=== PATIENT | male | born 1980 | race Asian ===

== ENCOUNTER 2017-10-16 04:03 | Inpatient (IN) | payer BC ==
[2017-10-16 04:17] LABS: AADO2 Arterial 535.9 mmHg (7.0-24.0); Allen Test ACCEPTAB; Arterial Base Excess 4.4 mmol/L (-3.0-3); Arterial Blood Gas Oxygen Sat 97.5 mmHG (95.0-98.0); Arterial COHb 0.3 % (0.0-3.0); Arterial Fraction of Oxyhgb 96.9 % (93.0-99.0); Arterial MetHb 0.3 % (0.0-1.5); Arterial Total Hemglobin 11.3 g/dl (12.0-18.0); Arterial pCO2 63.7 mmhg (35-45); MODE MASK - NRB; Site Left Radial
[2017-10-16] MEDS: ALBUTEROL 0.083% (NEB) 2.5 MG/3 ML AMP INH (04:26)
[2017-10-16] MEDS: IPRATROPIUM (NEB) 0.5 MG/2.5 ML AMP INH (04:26)
[2017-10-16 04:32] LABS: WHITE BLOOD COUNT 34.5 10^3/ul (4.8-10.8)
[2017-10-16 04:32] LABS: ABNORMAL IP MESSAGE 1; HEMATOCRIT 30.9 % (42.0-52.0); HEMOGLOBIN 10.2 g/dl (14.0-18.0); MEAN CORPUSCULAR HEMOGLOBIN 34.7 pg (29.0-33.0); MEAN CORPUSCULAR VOLUME 105.1 fl (82.0-101.0); MEAN PLATELET VOLUME 10.9 fl (7.4-10.4); PLATELET COUNT 255 10^3/UL (140-415); POSITIVE DIFF @See below; RED BLOOD COUNT 2.94 10^6/ul (4.70-6.10); RED CELL DISTRIBUTION WIDTH 13.5 % (11.5-14.5)
[2017-10-16 04:33] LABS: ADD MAN DIFF? YES
[2017-10-16 04:54] LABS: ALANINE AMINOTRANSFERASE 72 IU/L (13-69); ALBUMIN 3.5 g/dl (3.3-4.9); ALBUMIN/GLOBULIN RATIO 0.83; ALKALINE PHOSPHATASE 231 IU/L (42-121); ANION GAP 14 (8-16); ASPARTATE AMINO TRANSFERASE 51 IU/L (15-46); BILIRUBIN,INDIRECT 0.3 mg/dl (0-1.1); BILIRUBIN,TOTAL 0.3 mg/dl (0.2-1.3); BLOOD UREA NITROGEN 24 mg/dl (7-20); CALCIUM 10.2 mg/dl (8.4-10.2); CARBON DIOXIDE 32 mmol/L (21-31); CHLORIDE 95 mmol/L (97-110); CREATININE 0.77 mg/dl (0.61-1.24); GLUCOSE 175 mg/dl (70-220); POTASSIUM 4.6 mmol/L (3.5-5.1); SODIUM 136 mmol/L (135-144); TOTAL PROTEIN 7.7 g/dl (6.1-8.1)
[2017-10-16 04:55] LABS: INR 0.96; PROTIME 12.9 Sec (11.9-14.9)
[2017-10-16 04:55] LABS: LACTIC ACID 2.5 mmol/L (0.5-2.0)
[2017-10-16 04:56] LABS: PARTIAL THROMBOPLASTIN TIME 28.4 Sec (25.0-35.0)
[2017-10-16 05:05] LABS: B-TYPE NATRIURETIC PEPTIDE 147 PG/ML (0-125); TROPONIN-I 0.069 ng/ml (0.000-0.120)
[2017-10-16 05:10] LABS: ANISOCYTOSIS 1+ (0-0); BAND NEUTROPHILS % (M) 3 % (0-4); EOSINOPHILS % (M) 3 % (0-7); LYMPHOCYTES % (M) 6 % (15-51); MONOCYTE #M 3.1 10^3/ul (0.3-0.9); MONOCYTES % (M) 9 % (0-11); PLATELET ESTIMATE NORMAL; POLYCHROMASIA 2+ (0-0); REACTIVE LYMPHOCYTES #M 0.3 10^3/ul (0.0-0.0); REACTIVE LYMPHOCYTES% (M) 1 % (0-0); SEG NEUT #M 27.3 10^3/ul (1.6-7.5); SEGMENTED NEUTROPHILS (M) % 78 % (39-77)
[2017-10-16] MEDS: SODIUM CHLORIDE 0.9% 1L BAG IV* (05:51)
[2017-10-16] MEDS: CEFEPIME 2GM/50 ML (PMX) 50 ML IVPB (05:51)
[2017-10-16] MEDS ORDERED: IPRATROPIUM (HFA) 12.9 GM INHALER INH (06:00)
[2017-10-16] MEDS ORDERED: ALBUTEROL HFA 8 GM INHALER INH (06:00)
[2017-10-16] MEDS: LIDOCAINE 1% (MPF) 5 ML VIAL SC ×2 (06:30→09:44)
[2017-10-16] MEDS ORDERED: VANCOMYCIN IV PER PHARMACY XX (06:30)
[2017-10-16] MEDS: SOD CHLORIDE 0.9% 1,000 ML IV ×3 (06:51→20:13)
[2017-10-16] MEDS: NORepinephrine 8MG/250 ML (PMX 250 ML IV (06:51)
[2017-10-16 06:52] LABS: LACTIC ACID 10.4 mmol/L (0.5-2.0)
[2017-10-16] MEDS: PANTOPRAZOLE 40 MG INJ IV (06:54)
[2017-10-16] MEDS ORDERED: NA BICARBONATE 8.4% 50 ML SYG (07:00)
[2017-10-16] MEDS ORDERED: SUCCINYLCHOLINE CHLORIDE 100 MG/5 ML SYG IV (07:00)
[2017-10-16] MEDS ORDERED: EPINEPHrine 0.1 MG/ML SYG (07:00)
[2017-10-16 07:11] LABS: WHITE BLOOD COUNT 40.7 10^3/ul (4.8-10.8)
[2017-10-16 07:11] LABS: ABNORMAL IP MESSAGE 1; ADD UMIC YES; HEMATOCRIT 17.2 % (42.0-52.0); MEAN CORPUSCULAR HEMOGLOBIN 35.6 pg (29.0-33.0); MEAN CORPUSCULAR HGB CONC 33.1 g/dl (32.0-37.0); MEAN CORPUSCULAR VOLUME 107.5 fl (82.0-101.0); MEAN PLATELET VOLUME 11.2 fl (7.4-10.4); NUCLEATED RED BLOOD CELLS% 0.1 /100WBC (0.0-0.0); PLATELET COUNT 215 10^3/UL (140-415); POSITIVE DIFF @See below; RED CELL DISTRIBUTION WIDTH 13.8 % (11.5-14.5); UR ASCORBIC ACID 40 mg/dL (NEGATIVE); UR BILIRUBIN (Dip) NEGATIVE (NEGATIVE); UR BLOOD (Dip) 1+ mg/dL (NEGATIVE); UR CLARITY CLOUDY (CLEAR); UR COLOR YELLOW (YELLOW); UR GLUCOSE (Dip) 2+ mg/dL (NEGATIVE); UR KETONES (Dip) NEGATIVE (NEGATIVE); UR LEUKOCYTE ESTERASE (Dip) NEGATIVE Leu/ul (NEGATIVE); UR NITRITE (Dip) NEGATIVE (NEGATIVE); UR RBC 4 /HPF (0-5); UR SPECIFIC GRAVITY (Dip) 1.014 (1.003-1.030); UR TOTAL PROTEIN (Dip) 3+ mg/dl (NEGATIVE); UR UROBILINOGEN (Dip) NEGATIVE (NEGATIVE); UR WBC 2 /HPF (0-5)
[2017-10-16 07:18] LABS: ADD MAN DIFF? YES; HEMOGLOBIN 5.7 g/dl (14.0-18.0)
[2017-10-16 07:30] LABS: ALANINE AMINOTRANSFERASE 760 IU/L (13-69); ALBUMIN 2.6 g/dl (3.3-4.9); ALBUMIN/GLOBULIN RATIO 0.81; ALKALINE PHOSPHATASE 171 IU/L (42-121); ANION GAP 15 (8-16); BILIRUBIN,INDIRECT 0.2 mg/dl (0-1.1); BILIRUBIN,TOTAL 0.2 mg/dl (0.2-1.3); BLOOD UREA NITROGEN 26 mg/dl (7-20); CALCIUM 8.5 mg/dl (8.4-10.2); CARBON DIOXIDE 26 mmol/L (21-31); CHLORIDE 102 mmol/L (97-110); CREATINE KINASE 215 IU/L (23-200); CREATININE 0.88 mg/dl (0.61-1.24); GLUCOSE 128 mg/dl (70-220); POTASSIUM 4.2 mmol/L (3.5-5.1); SODIUM 139 mmol/L (135-144); TOTAL PROTEIN 5.8 g/dl (6.1-8.1)
[2017-10-16 07:33] LABS: LACTIC ACID 5.9 mmol/L (0.5-2.0)
[2017-10-16 07:37] LABS: ASPARTATE AMINO TRANSFERASE 1126 IU/L (15-46)
[2017-10-16 07:39] LABS: HEMOGLOBIN A1C 5.9 % (0-5.9)
[2017-10-16 07:44] LABS: AADO2 Arterial 375.8 mmHg (7.0-24.0); Allen Test ACCEPTAB; Arterial Base Excess 1.8 mmol/L (-3.0-3); Arterial Blood Gas Oxygen Sat 99.4 mmHG (95.0-98.0); Arterial COHb 0.3 % (0.0-3.0); Arterial HCO3 24.8 mmol/L (22.0-26.0); Arterial MetHb 0.1 % (0.0-1.5); Arterial Total Hemglobin 9.8 g/dl (12.0-18.0); Arterial pCO2 32.8 mmhg (35-45); MODE VENT - AC; Site Left Radial
[2017-10-16 08:08] LABS: ANISOCYTOSIS 1+ (0-0); BAND NEUTROPHILS #M 2.8 10^3/ul (0.0-0.6); BAND NEUTROPHILS % (M) 7 % (0-4); HYPOCHROMASIA 2+ (0-0); MONOCYTE #M 1.2 10^3/ul (0.3-0.9); MONOCYTES % (M) 3 % (0-11); MYELOCYTES #M 0.4 10^3/ul (0.0-0.0); MYELOCYTES % (M) 1 % (0-0); PLATELET ESTIMATE NORMAL; POLYCHROMASIA 1+ (0-0); SEG NEUT #M 37.4 10^3/ul (1.6-7.5); SEGMENTED NEUTROPHILS (M) % 89 % (39-77)
[2017-10-16] MEDS: VANCOMYCIN 1 GM (PMX) 250 ML IVPB (08:19)
[2017-10-16 09:50] LABS: LACTIC ACID 1.7 mmol/L (0.5-2.0)
[2017-10-16] MEDS: FUROSEMIDE 20 MG INJ IV (12:43)
[2017-10-16] MEDS: PIPER-TAZO 3.375 GM IV (PMX) 100 ML IVPB ×2 (12:43→17:38)
[2017-10-16 13:28] LABS: ADD MAN DIFF? NO
[2017-10-16 13:31] LABS: ABNORMAL IP MESSAGE 1; HEMATOCRIT 30.3 % (42.0-52.0); HEMOGLOBIN 10.3 g/dl (14.0-18.0); MEAN CORPUSCULAR HEMOGLOBIN 32.4 pg (29.0-33.0); MEAN CORPUSCULAR VOLUME 95.3 fl (82.0-101.0); MEAN PLATELET VOLUME 10.3 fl (7.4-10.4); NUCLEATED RED BLOOD CELLS% 0.1 /100WBC (0.0-0.0); PLATELET COUNT 154 10^3/UL (140-415); POSITIVE DIFF @See below; RED BLOOD COUNT 3.18 10^6/ul (4.70-6.10); RED CELL DISTRIBUTION WIDTH 18.1 % (11.5-14.5)
[2017-10-16 13:39] LABS: IMMEDIATE SPIN CROSSMATCH 1 3
[2017-10-16 13:52] LABS: CREATINE KINASE 662 IU/L (23-200)
[2017-10-16] MEDS: ASPIRIN (EC) 81 MG TAB PO (14:01)
[2017-10-16 14:04] LABS: CK INDEX 5.1
[2017-10-16 14:14] LABS: LACTIC ACID 2.1 mmol/L (0.5-2.0)
[2017-10-16] MEDS: VANCOMYCIN 750 MG in SOD CHLORIDE 0.9% 150 ML IVPB (15:34)
[2017-10-16 19:04] LABS: ADD MAN DIFF? NO
[2017-10-16 19:06] LABS: WHITE BLOOD COUNT 27.7 10^3/ul (4.8-10.8)
[2017-10-16 19:06] LABS: ABNORMAL IP MESSAGE 1; HEMATOCRIT 36.4 % (42.0-52.0); HEMOGLOBIN 12.5 g/dl (14.0-18.0); MEAN CORPUSCULAR HEMOGLOBIN 31.6 pg (29.0-33.0); MEAN CORPUSCULAR HGB CONC 34.3 g/dl (32.0-37.0); MEAN CORPUSCULAR VOLUME 92.2 fl (82.0-101.0); MEAN PLATELET VOLUME 10.8 fl (7.4-10.4); NUCLEATED RED BLOOD CELLS% 0.1 /100WBC (0.0-0.0); PLATELET COUNT 160 10^3/UL (140-415); POSITIVE DIFF @See below; RED BLOOD COUNT 3.95 10^6/ul (4.70-6.10); RED CELL DISTRIBUTION WIDTH 18.9 % (11.5-14.5)
[2017-10-16 19:25] LABS: CREATINE KINASE 546 IU/L (23-200)
[2017-10-16 19:25] LABS: LACTIC ACID 1.6 mmol/L (0.5-2.0)
[2017-10-16 19:38] LABS: CK INDEX 4.8
[2017-10-16 19:52] LABS: ANISOCYTOSIS 1+ (0-0); BAND NEUTROPHILS #M 0.8 10^3/ul (0.0-0.6); BAND NEUTROPHILS % (M) 3 % (0-4); LYMPHOCYTES #M 1.1 10^3/ul (0.8-2.9); LYMPHOCYTES % (M) 4 % (15-51); MICROCYTOSIS 1+ (0-0); MONOCYTE #M 0.5 10^3/ul (0.3-0.9); MONOCYTES % (M) 2 % (0-11); SEG NEUT #M 25.4 10^3/ul (1.6-7.5); SEGMENTED NEUTROPHILS (M) % 91 % (39-77); SMUDGE%M 1 % (0-0)
[2017-10-17] MEDS: PIPER-TAZO 3.375 GM IV (PMX) 100 ML IVPB ×5 (00:03→23:54)
[2017-10-17] MEDS: ACYCLOVIR 800 MG TAB PO ×5 (00:03→23:54)
[2017-10-17] MEDS: VANCOMYCIN 750 MG in SOD CHLORIDE 0.9% 150 ML IVPB ×4 (00:04→23:54)
[2017-10-17] MEDS: morphine 2 MG INJ IV ×2 (00:39→07:06)
[2017-10-17] MEDS: PANTOPRAZOLE 40 MG INJ IV (05:10)
[2017-10-17 05:43] LABS: ALANINE AMINOTRANSFERASE 547 IU/L (13-69); ALBUMIN 2.6 g/dl (3.3-4.9); ALBUMIN/GLOBULIN RATIO 0.76; ALKALINE PHOSPHATASE 155 IU/L (42-121); ANION GAP 13 (8-16); ASPARTATE AMINO TRANSFERASE 420 IU/L (15-46); BILIRUBIN,INDIRECT 0.8 mg/dl (0-1.1); BILIRUBIN,TOTAL 0.8 mg/dl (0.2-1.3); BLOOD UREA NITROGEN 26 mg/dl (7-20); CALCIUM 7.8 mg/dl (8.4-10.2); CARBON DIOXIDE 26 mmol/L (21-31); CHLORIDE 104 mmol/L (97-110); CREATININE 0.78 mg/dl (0.61-1.24); GLUCOSE 115 mg/dl (70-220); MAGNESIUM 1.9 mg/dl (1.7-2.5); PHOSPHORUS 3.9 mg/dl (2.5-4.9); POTASSIUM 3.4 mmol/L (3.5-5.1); SODIUM 140 mmol/L (135-144)
[2017-10-17 05:49] LABS: LACTIC ACID 2.2 mmol/L (0.5-2.0)
[2017-10-17 07:56] LABS: VANCOMYCIN,TROUGH 14.1 ug/ml (10.0-20.0)
[2017-10-17] MEDS: ASPIRIN 81 MG TAB PEG (09:11)
[2017-10-17] MEDS: SOD CHLORIDE 0.9% 1,000 ML IV ×2 (09:28→21:59)
[2017-10-17] MEDS: LORAZEPAM 2 MG INJ IV ×2 (11:29→20:14)
[2017-10-17 12:46] LABS: OCCULT BLOOD STOOL NEGATIVE (NEGATIVE)
[2017-10-17] MEDS: POTASSIUM CHLORIDE 50 ML IVPB ×2 (18:28→20:14)
[2017-10-18] MEDS: LORAZEPAM 2 MG INJ IV (03:48)
[2017-10-18] MEDS: PIPER-TAZO 3.375 GM IV (PMX) 100 ML IVPB ×2 (05:11→12:19)
[2017-10-18] MEDS: PETROLATUM 28.35 GM JELLY TOP (05:11)
[2017-10-18] MEDS: ACYCLOVIR 800 MG TAB PO ×3 (05:11→17:36)
[2017-10-18] MEDS: PANTOPRAZOLE 40 MG INJ IV (05:11)
[2017-10-18 05:49] LABS: ADD MAN DIFF? NO
[2017-10-18 05:52] LABS: ABNORMAL IP MESSAGE 1; BASOPHILS % 0.1 % (0.0-2.0); EOSINOPHILS % 0.1 % (0.0-7.0); HEMOGLOBIN 11.5 g/dl (14.0-18.0); LYMPHOCYTES # 0.6 10^3/ul (0.8-2.9); MEAN CORPUSCULAR HEMOGLOBIN 31.5 pg (29.0-33.0); MEAN CORPUSCULAR HGB CONC 33.8 g/dl (32.0-37.0); MEAN CORPUSCULAR VOLUME 93.2 fl (82.0-101.0); MEAN PLATELET VOLUME 11.4 fl (7.4-10.4); MONOCYTE # 1.5 10^3/ul (0.3-0.9); MONOCYTES % 5.4 % (0.0-11.0); NEUTROPHIL # 25.2 10^3/ul (1.6-7.5); NEUTROPHILS % 91.3 % (39.0-77.0); NUCLEATED RED BLOOD CELLS% 0.1 /100WBC (0.0-0.0); PLATELET COUNT 131 10^3/UL (140-415); POSITIVE DIFF @See below; RED BLOOD COUNT 3.65 10^6/ul (4.70-6.10); RED CELL DISTRIBUTION WIDTH 18.6 % (11.5-14.5)
[2017-10-18 05:52] LABS: WHITE BLOOD COUNT 27.6 10^3/ul (4.8-10.8)
[2017-10-18 06:14] LABS: ALANINE AMINOTRANSFERASE 313 IU/L (13-69); ALBUMIN 2.5 g/dl (3.3-4.9); ALBUMIN/GLOBULIN RATIO 0.78; ALKALINE PHOSPHATASE 145 IU/L (42-121); ANION GAP 10 (8-16); ASPARTATE AMINO TRANSFERASE 127 IU/L (15-46); BILIRUBIN,INDIRECT 0.9 mg/dl (0-1.1); BILIRUBIN,TOTAL 0.9 mg/dl (0.2-1.3); BLOOD UREA NITROGEN 18 mg/dl (7-20); CALCIUM 8.1 mg/dl (8.4-10.2); CARBON DIOXIDE 25 mmol/L (21-31); CHLORIDE 106 mmol/L (97-110); CREATININE 0.59 mg/dl (0.61-1.24); GLUCOSE 83 mg/dl (70-220); POTASSIUM 3.7 mmol/L (3.5-5.1); SODIUM 137 mmol/L (135-144); TOTAL PROTEIN 5.7 g/dl (6.1-8.1)
[2017-10-18 06:46] LABS: LACTIC ACID 1.4 mmol/L (0.5-2.0)
[2017-10-18 08:04] LABS: PHOSPHORUS 2.2 mg/dl (2.5-4.9)
[2017-10-18] MEDS: SOD CHLORIDE 0.9% 1,000 ML IV ×2 (09:09→19:39)
[2017-10-18] MEDS: VANCOMYCIN 750 MG in SOD CHLORIDE 0.9% 150 ML IVPB ×2 (09:09→17:36)
[2017-10-18] MEDS: ASPIRIN 81 MG TAB PEG (09:10)
[2017-10-18] MEDS: ACETAMINOPHEN 650MG/20.3ML CUP NGT (09:11)
[2017-10-18] MEDS: POTASSIUM PHOSPHATE 15 MM in SOD CHLORIDE 0.9% 250 ML IVPB (12:18)
[2017-10-18] MEDS: HEPARIN 5,000 UNIT/0.5 ML VIAL SC ×2 (12:24→21:40)
[2017-10-18] MEDS: MEROPENEM 1 GM/50ML(PMX) 50 ML IVPB (21:20)
[2017-10-18 23:37] LABS: VANCOMYCIN,TROUGH 14.1 ug/ml (10.0-20.0)
[2017-10-19] MEDS: ACYCLOVIR 800 MG TAB PO ×5 (00:05→23:32)
[2017-10-19] MEDS: VANCOMYCIN 750 MG in SOD CHLORIDE 0.9% 150 ML IVPB ×4 (00:05→23:32)
[2017-10-19] MEDS: SOD CHLORIDE 0.9% 1,000 ML IV ×3 (04:54→23:25)
[2017-10-19] MEDS: PANTOPRAZOLE 40 MG INJ IV (05:38)
[2017-10-19 05:41] LABS: ADD MAN DIFF? NO
[2017-10-19 05:44] LABS: WHITE BLOOD COUNT 30.4 10^3/ul (4.8-10.8)
[2017-10-19 05:44] LABS: ABNORMAL IP MESSAGE 1; BASOPHIL # 0.1 10^3/ul (0.0-0.1); BASOPHILS % 0.2 % (0.0-2.0); EOSINOPHILS # 0.1 10^3/ul (0.0-0.5); EOSINOPHILS % 0.3 % (0.0-7.0); HEMATOCRIT 35.3 % (42.0-52.0); HEMOGLOBIN 11.8 g/dl (14.0-18.0); LYMPHOCYTES # 0.7 10^3/ul (0.8-2.9); LYMPHOCYTES % 2.4 % (15.0-51.0); MEAN CORPUSCULAR HEMOGLOBIN 31.8 pg (29.0-33.0); MEAN CORPUSCULAR HGB CONC 33.4 g/dl (32.0-37.0); MEAN CORPUSCULAR VOLUME 95.1 fl (82.0-101.0); MEAN PLATELET VOLUME 11.6 fl (7.4-10.4); MONOCYTE # 1.4 10^3/ul (0.3-0.9); MONOCYTES % 4.4 % (0.0-11.0); NEUTROPHIL # 27.7 10^3/ul (1.6-7.5); NEUTROPHILS % 91.4 % (39.0-77.0); NUCLEATED RED BLOOD CELLS% 0.1 /100WBC (0.0-0.0); PLATELET COUNT 133 10^3/UL (140-415); POSITIVE DIFF @See below; RED BLOOD COUNT 3.71 10^6/ul (4.70-6.10); RED CELL DISTRIBUTION WIDTH 17.8 % (11.5-14.5)
[2017-10-19 06:11] LABS: ALANINE AMINOTRANSFERASE 222 IU/L (13-69); ALBUMIN 2.5 g/dl (3.3-4.9); ALKALINE PHOSPHATASE 151 IU/L (42-121); ANION GAP 13 (8-16); ASPARTATE AMINO TRANSFERASE 73 IU/L (15-46); BILIRUBIN,INDIRECT 0.9 mg/dl (0-1.1); BILIRUBIN,TOTAL 0.9 mg/dl (0.2-1.3); BLOOD UREA NITROGEN 15 mg/dl (7-20); CALCIUM 7.9 mg/dl (8.4-10.2); CARBON DIOXIDE 21 mmol/L (21-31); CHLORIDE 106 mmol/L (97-110); CREATININE 0.54 mg/dl (0.61-1.24); GLUCOSE 69 mg/dl (70-220); MAGNESIUM 1.9 mg/dl (1.7-2.5); PHOSPHORUS 2.5 mg/dl (2.5-4.9); SODIUM 137 mmol/L (135-144); TOTAL PROTEIN 5.6 g/dl (6.1-8.1)
[2017-10-19] MEDS: morphine 2 MG INJ IV (09:32)
[2017-10-19] MEDS: MEROPENEM 1 GM/50ML(PMX) 50 ML IVPB ×2 (10:59→21:03)
[2017-10-19] MEDS: ASPIRIN 81 MG TAB PEG (10:59)
[2017-10-19] MEDS: POTASSIUM CHLORIDE 20 MEQ POWDER FOR ORAL SOLN GTB (11:00)
[2017-10-19] MEDS: HEPARIN 5,000 UNIT/0.5 ML VIAL SC ×2 (11:14→21:07)
[2017-10-19] MEDS: ACETAMINOPHEN 650MG/20.3ML CUP NGT (13:48)
[2017-10-20] MEDS: ACETAMINOPHEN 650MG/20.3ML CUP NGT (00:48)
[2017-10-20] MEDS: SOD CHLORIDE 0.9% 1,000 ML IV ×2 (04:21→16:26)
[2017-10-20 05:10] LABS: ADD MAN DIFF? NO
[2017-10-20 05:15] LABS: WHITE BLOOD COUNT 31.1 10^3/ul (4.8-10.8)
[2017-10-20 05:15] LABS: ABNORMAL IP MESSAGE 1; BASOPHIL # 0.1 10^3/ul (0.0-0.1); BASOPHILS % 0.2 % (0.0-2.0); EOSINOPHILS # 0.3 10^3/ul (0.0-0.5); HEMATOCRIT 34.9 % (42.0-52.0); HEMOGLOBIN 12.1 g/dl (14.0-18.0); LYMPHOCYTES # 0.5 10^3/ul (0.8-2.9); LYMPHOCYTES % 1.6 % (15.0-51.0); MEAN CORPUSCULAR HEMOGLOBIN 32.5 pg (29.0-33.0); MEAN CORPUSCULAR HGB CONC 34.7 g/dl (32.0-37.0); MEAN CORPUSCULAR VOLUME 93.8 fl (82.0-101.0); MEAN PLATELET VOLUME 11.4 fl (7.4-10.4); MONOCYTE # 1.2 10^3/ul (0.3-0.9); NEUTROPHIL # 28.7 10^3/ul (1.6-7.5); NEUTROPHILS % 92.1 % (39.0-77.0); NUCLEATED RED BLOOD CELLS% 0.1 /100WBC (0.0-0.0); PLATELET COUNT 131 10^3/UL (140-415); POSITIVE DIFF @See below; RED BLOOD COUNT 3.72 10^6/ul (4.70-6.10); RED CELL DISTRIBUTION WIDTH 17.4 % (11.5-14.5)
[2017-10-20 05:22] LABS: AADO2 Arterial 81.7 mmHg (7.0-24.0); Allen Test ACCEPTAB; Arterial Base Excess -4.6 mmol/L (-3.0-3); Arterial Blood Gas Oxygen Sat 97.7 mmHG (95.0-98.0); Arterial COHb 0.6 % (0.0-3.0); Arterial Fraction of Oxyhgb 96.9 % (93.0-99.0); Arterial HCO3 17.3 mmol/L (22.0-26.0); Arterial MetHb 0.2 % (0.0-1.5); Arterial Total Hemglobin 12.5 g/dl (12.0-18.0); MODE VENT - AC; Site Right Radial
[2017-10-20 05:34] LABS: ALANINE AMINOTRANSFERASE 153 IU/L (13-69); ALBUMIN 2.3 g/dl (3.3-4.9); ALBUMIN/GLOBULIN RATIO 0.79; ALKALINE PHOSPHATASE 151 IU/L (42-121); ANION GAP 11 (8-16); ASPARTATE AMINO TRANSFERASE 57 IU/L (15-46); BILIRUBIN,INDIRECT 0.6 mg/dl (0-1.1); BILIRUBIN,TOTAL 0.6 mg/dl (0.2-1.3); BLOOD UREA NITROGEN 14 mg/dl (7-20); CARBON DIOXIDE 21 mmol/L (21-31); CHLORIDE 107 mmol/L (97-110); GLUCOSE 77 mg/dl (70-220); SODIUM 136 mmol/L (135-144); TOTAL PROTEIN 5.2 g/dl (6.1-8.1)
[2017-10-20 05:37] LABS: POTASSIUM 2.8 mmol/L (3.5-5.1)
[2017-10-20] MEDS: POTASSIUM CHLORIDE 20 MEQ POWDER FOR ORAL SOLN GTB (06:05)
[2017-10-20] MEDS: ACYCLOVIR 800 MG TAB PO ×3 (06:05→16:54)
[2017-10-20] MEDS: PANTOPRAZOLE 40 MG INJ IV (06:05)
[2017-10-20 06:43] LABS: MAGNESIUM 1.9 mg/dl (1.7-2.5)
[2017-10-20] MEDS: VANCOMYCIN 750 MG in SOD CHLORIDE 0.9% 150 ML IVPB ×2 (09:31→16:26)
[2017-10-20] MEDS: ASPIRIN 81 MG TAB PEG (09:34)
[2017-10-20] MEDS: HEPARIN 5,000 UNIT/0.5 ML VIAL SC ×2 (09:38→20:40)
[2017-10-20] MEDS: MEROPENEM 1 GM/50ML(PMX) 50 ML IVPB ×2 (12:09→20:37)
[2017-10-20] MEDS: morphine 2 MG INJ IV (16:32)
[2017-10-21] MEDS: ACYCLOVIR 800 MG TAB PO ×4 (00:10→18:13)
[2017-10-21] MEDS: VANCOMYCIN 750 MG in SOD CHLORIDE 0.9% 150 ML IVPB ×3 (00:11→17:20)
[2017-10-21 05:06] LABS: ADD MAN DIFF? NO
[2017-10-21] MEDS: PANTOPRAZOLE 40 MG INJ IV (05:16)
[2017-10-21 05:17] LABS: WHITE BLOOD COUNT 38.2 10^3/ul (4.8-10.8)
[2017-10-21 05:17] LABS: ABNORMAL IP MESSAGE 1; BASOPHIL # 0.1 10^3/ul (0.0-0.1); BASOPHILS % 0.2 % (0.0-2.0); EOSINOPHILS # 0.2 10^3/ul (0.0-0.5); EOSINOPHILS % 0.5 % (0.0-7.0); HEMATOCRIT 35.9 % (42.0-52.0); HEMOGLOBIN 12.3 g/dl (14.0-18.0); LYMPHOCYTES # 0.8 10^3/ul (0.8-2.9); LYMPHOCYTES % 2.1 % (15.0-51.0); MEAN CORPUSCULAR HEMOGLOBIN 32.3 pg (29.0-33.0); MEAN CORPUSCULAR HGB CONC 34.3 g/dl (32.0-37.0); MEAN CORPUSCULAR VOLUME 94.2 fl (82.0-101.0); MEAN PLATELET VOLUME 10.9 fl (7.4-10.4); MONOCYTE # 1.5 10^3/ul (0.3-0.9); MONOCYTES % 3.9 % (0.0-11.0); NEUTROPHIL # 35.3 10^3/ul (1.6-7.5); NEUTROPHILS % 92.2 % (39.0-77.0); PLATELET COUNT 134 10^3/UL (140-415); POSITIVE DIFF @See below; RED BLOOD COUNT 3.81 10^6/ul (4.70-6.10); RED CELL DISTRIBUTION WIDTH 17.3 % (11.5-14.5)
[2017-10-21 05:44] LABS: ANION GAP 10 (8-16); BLOOD UREA NITROGEN 13 mg/dl (7-20); CALCIUM 8.1 mg/dl (8.4-10.2); CARBON DIOXIDE 23 mmol/L (21-31); CHLORIDE 104 mmol/L (97-110); CREATININE 0.55 mg/dl (0.61-1.24); GLUCOSE 105 mg/dl (70-220); SODIUM 134 mmol/L (135-144)
[2017-10-21] MEDS: SOD CHLORIDE 0.9% 1,000 ML IV ×2 (07:05→16:00)
[2017-10-21] MEDS: ASPIRIN 81 MG TAB PEG (08:30)
[2017-10-21] MEDS: ACETAMINOPHEN 650MG/20.3ML CUP NGT ×2 (08:30→22:04)
[2017-10-21] MEDS: HEPARIN 5,000 UNIT/0.5 ML VIAL SC ×2 (09:57→21:52)
[2017-10-21] MEDS: MEROPENEM 1 GM/50ML(PMX) 50 ML IVPB ×2 (10:53→21:51)
[2017-10-21] MEDS: FLUCONAZOLE 100 MG/50 ML (PMX) 50 ML IVPB (15:59)
[2017-10-21] MEDS: POTASSIUM CHLORIDE 20 MEQ POWDER FOR ORAL SOLN PO ×2 (17:16→21:51)
[2017-10-21] MEDS ORDERED: morphine 4 MG/ML VIAL IV (18:30)
[2017-10-21 23:33] LABS: VANCOMYCIN,TROUGH 14.2 ug/ml (10.0-20.0)
[2017-10-22] MEDS: ACYCLOVIR 800 MG TAB PO ×5 (00:07→23:56)
[2017-10-22] MEDS: VANCOMYCIN 750 MG in SOD CHLORIDE 0.9% 150 ML IVPB ×4 (00:07→23:56)
[2017-10-22] MEDS: SOD CHLORIDE 0.9% 1,000 ML IV (00:54)
[2017-10-22] MEDS: PANTOPRAZOLE 40 MG INJ IV (05:43)
[2017-10-22 05:49] LABS: ADD MAN DIFF? NO
[2017-10-22 06:01] LABS: ABNORMAL IP MESSAGE 1; BASOPHIL # 0.1 10^3/ul (0.0-0.1); BASOPHILS % 0.2 % (0.0-2.0); EOSINOPHILS # 0.4 10^3/ul (0.0-0.5); HEMATOCRIT 35.5 % (42.0-52.0); HEMOGLOBIN 12.2 g/dl (14.0-18.0); LYMPHOCYTES # 0.9 10^3/ul (0.8-2.9); LYMPHOCYTES % 2.1 % (15.0-51.0); MEAN CORPUSCULAR HEMOGLOBIN 32.4 pg (29.0-33.0); MEAN CORPUSCULAR HGB CONC 34.4 g/dl (32.0-37.0); MEAN CORPUSCULAR VOLUME 94.2 fl (82.0-101.0); MEAN PLATELET VOLUME 11.4 fl (7.4-10.4); MONOCYTE # 1.9 10^3/ul (0.3-0.9); MONOCYTES % 4.4 % (0.0-11.0); NEUTROPHIL # 38.1 10^3/ul (1.6-7.5); NEUTROPHILS % 89.9 % (39.0-77.0); PLATELET COUNT 131 10^3/UL (140-415); POSITIVE DIFF @See below; RED BLOOD COUNT 3.77 10^6/ul (4.70-6.10); RED CELL DISTRIBUTION WIDTH 17.6 % (11.5-14.5)
[2017-10-22 06:01] LABS: WHITE BLOOD COUNT 42.3 10^3/ul (4.8-10.8)
[2017-10-22 06:10] LABS: MAGNESIUM 1.8 mg/dl (1.7-2.5)
[2017-10-22 06:10] LABS: PHOSPHORUS 1.3 mg/dl (2.5-4.9)
[2017-10-22 06:15] LABS: ANION GAP 9 (8-16); BLOOD UREA NITROGEN 15 mg/dl (7-20); CALCIUM 8.1 mg/dl (8.4-10.2); CARBON DIOXIDE 25 mmol/L (21-31); CHLORIDE 104 mmol/L (97-110); CREATININE 0.48 mg/dl (0.61-1.24); GLUCOSE 126 mg/dl (70-220); POTASSIUM 3.6 mmol/L (3.5-5.1); SODIUM 134 mmol/L (135-144)
[2017-10-22] MEDS: ASPIRIN 81 MG TAB PEG (08:37)
[2017-10-22] MEDS: ACETAMINOPHEN 650MG/20.3ML CUP NGT ×2 (08:38→15:56)
[2017-10-22] MEDS: HEPARIN 5,000 UNIT/0.5 ML VIAL SC ×2 (08:42→21:42)
[2017-10-22] MEDS: MEROPENEM 1 GM/50ML(PMX) 50 ML IVPB ×2 (10:00→21:34)
[2017-10-22] MEDS: FLUCONAZOLE 100 MG/50 ML (PMX) 50 ML IVPB (13:37)
[2017-10-23 05:17] LABS: ADD MAN DIFF? NO
[2017-10-23 05:25] LABS: ABNORMAL IP MESSAGE 1; BASOPHIL # 0.1 10^3/ul (0.0-0.1); BASOPHILS % 0.2 % (0.0-2.0); EOSINOPHILS # 0.3 10^3/ul (0.0-0.5); EOSINOPHILS % 0.7 % (0.0-7.0); HEMATOCRIT 34.1 % (42.0-52.0); HEMOGLOBIN 11.6 g/dl (14.0-18.0); LYMPHOCYTES % 2.4 % (15.0-51.0); MEAN CORPUSCULAR HEMOGLOBIN 32.1 pg (29.0-33.0); MEAN CORPUSCULAR VOLUME 94.5 fl (82.0-101.0); MEAN PLATELET VOLUME 11.9 fl (7.4-10.4); MONOCYTE # 2.1 10^3/ul (0.3-0.9); NEUTROPHIL # 38.8 10^3/ul (1.6-7.5); NEUTROPHILS % 90.1 % (39.0-77.0); PLATELET COUNT 136 10^3/UL (140-415); POSITIVE DIFF @See below; RED BLOOD COUNT 3.61 10^6/ul (4.70-6.10); RED CELL DISTRIBUTION WIDTH 17.6 % (11.5-14.5)
[2017-10-23] MEDS: ACYCLOVIR 800 MG TAB PO ×3 (06:00→19:03)
[2017-10-23 06:11] LABS: ANION GAP 11 (8-16); BLOOD UREA NITROGEN 14 mg/dl (7-20); CALCIUM 8.2 mg/dl (8.4-10.2); CARBON DIOXIDE 25 mmol/L (21-31); CHLORIDE 98 mmol/L (97-110); CREATININE 0.52 mg/dl (0.61-1.24); GLUCOSE 116 mg/dl (70-220); MAGNESIUM 1.6 mg/dl (1.7-2.5); PHOSPHORUS 1.6 mg/dl (2.5-4.9); POTASSIUM 3.3 mmol/L (3.5-5.1); SODIUM 131 mmol/L (135-144)
[2017-10-23] MEDS: PANTOPRAZOLE 40 MG INJ IV (06:18)
[2017-10-23] MEDS: VANCOMYCIN 750 MG in SOD CHLORIDE 0.9% 150 ML IVPB ×2 (07:39→17:44)
[2017-10-23] MEDS: ACETAMINOPHEN 650MG/20.3ML CUP NGT ×2 (08:34→22:04)
[2017-10-23] MEDS: ASPIRIN 81 MG TAB PEG (08:34)
[2017-10-23] MEDS: HEPARIN 5,000 UNIT/0.5 ML VIAL SC ×2 (08:47→22:18)
[2017-10-23] MEDS: MEROPENEM 1 GM/50ML(PMX) 50 ML IVPB ×2 (10:06→22:04)
[2017-10-23 12:17] LABS: PROCALCITONIN 11.41 ng/mL (<0.10)
[2017-10-23] MEDS ORDERED: morphine LIQ (10 MG/5 ML) CUP PO (13:30)
[2017-10-23] MEDS: FLUCONAZOLE 100 MG/50 ML (PMX) 50 ML IVPB (13:59)
[2017-10-23] MEDS: morphine LIQ (10 MG/5 ML) CUP PO (22:05)
[2017-10-24] MEDS: VANCOMYCIN 750 MG in SOD CHLORIDE 0.9% 150 ML IVPB ×3 (00:41→17:38)
[2017-10-24] MEDS: ACYCLOVIR 800 MG TAB PO ×4 (00:41→17:37)
[2017-10-24] MEDS: LANSOPRAZOLE 30 MG CAP PO (05:17)
[2017-10-24] MEDS: MEROPENEM 1 GM/50ML(PMX) 50 ML IVPB ×2 (08:28→21:26)
[2017-10-24] MEDS: ASPIRIN 81 MG TAB PEG (09:39)
[2017-10-24] MEDS: HEPARIN 5,000 UNIT/0.5 ML VIAL SC ×2 (09:50→22:23)
[2017-10-24] MEDS: FLUCONAZOLE 100 MG/50 ML (PMX) 50 ML IVPB (13:30)
[2017-10-24] MEDS: ACETAMINOPHEN 650MG/20.3ML CUP NGT (13:31)
[2017-10-24] MEDS: SOD CHLORIDE 0.9% 1,000 ML IV (17:07)
[2017-10-25] MEDS: ACETAMINOPHEN 650MG/20.3ML CUP NGT ×2 (00:11→11:41)
[2017-10-25] MEDS: ACYCLOVIR 800 MG TAB PO ×4 (00:11→17:35)
[2017-10-25] MEDS: VANCOMYCIN 750 MG in SOD CHLORIDE 0.9% 150 ML IVPB ×3 (00:11→17:00)
[2017-10-25] MEDS: LANSOPRAZOLE 30 MG CAP PO (06:20)
[2017-10-25] MEDS: MEROPENEM 1 GM/50ML(PMX) 50 ML IVPB ×2 (08:34→20:52)
[2017-10-25] MEDS: ASPIRIN 81 MG TAB PEG (08:35)
[2017-10-25] MEDS: HEPARIN 5,000 UNIT/0.5 ML VIAL SC ×2 (08:43→21:19)
[2017-10-25] MEDS: FLUCONAZOLE 100 MG/50 ML (PMX) 50 ML IVPB (14:56)
== END 2017-10-25 22:19 | DRG 870 ==
LOC: 6WM 10-23 05:53 → E/R 04:03 → ICU 08:32
PROC: 02H633Z Insertion of Infusion Device into Right Atrium, Percutaneous Approach (ICD-10-PCS; principal; 2017-10-16)
PROC: 0BH18EZ Insertion of Endotracheal Airway into Trachea, Via Natural or Artificial Opening Endoscopic (ICD-10-PCS; 2017-10-16)
PROC: 5A1955Z Respiratory Ventilation, Greater than 96 Consecutive Hours (ICD-10-PCS; 2017-10-16)
PROC: 0BH18YZ Insertion of Other Device into Trachea, Via Natural or Artificial Opening Endoscopic (ICD-10-PCS; 2017-10-16)
PROC: 0BP1XDZ Removal of Intraluminal Device from Trachea, External Approach (ICD-10-PCS; 2017-10-16)
DX: A41.9 Sepsis, unspecified organism (principal); R65.21 Severe sepsis with septic shock; J96.20 Acute and chronic respiratory failure, unspecified whether with hypoxia or hypercapnia; I21.A1 Myocardial infarction type 2; I46.8 Cardiac arrest due to other underlying condition; K72.00 Acute and subacute hepatic failure without coma; J18.9 Pneumonia, unspecified organism; E87.2 Acidosis; G93.1 Anoxic brain damage, not elsewhere classified; I42.9 Cardiomyopathy, unspecified; J98.19 Other pulmonary collapse; C78.02 Secondary malignant neoplasm of left lung; J98.11 Atelectasis; C92.11 Chronic myeloid leukemia, BCR/ABL-positive, in remission; D89.813 Graft-versus-host disease, unspecified; B00.1 Herpesviral vesicular dermatitis; I25.10 Atherosclerotic heart disease of native coronary artery without angina pectoris; E87.6 Hypokalemia; E83.39 Other disorders of phosphorus metabolism; T17.990A Other foreign object in respiratory tract, part unspecified in causing asphyxiation, initial encounter; X58.XXXA Exposure to other specified factors, initial encounter; Y92.89 Other specified places as the place of occurrence of the external cause; Z85.810 Personal history of malignant neoplasm of tongue; Z92.21 Personal history of antineoplastic chemotherapy; Z92.3 Personal history of irradiation
CPT/HCPCS: 31500; 36415; 36430; 36569; 36600; 71045; 76700; 76937; 78226; 80048; 80053; 80202; 81001; 82270; 82550; 82553; 82803; 83036; 83605; 83735; 83880; 84100; 84145; 84484; 85025; 85610; 85730; 86644; 86850; 86900; 86901; 86920; 87040; 87070; 87081; 87086; 87400; 89220; 92950; 93005; 93306; 94002; 94003; 94660; 96374; 99291-25